=== PATIENT | female | born 1970 | race Caucasian/White ===

== ENCOUNTER 2022-04-04 11:51 | Emergency (ER) | payer MEDICAID, OTHER ==
[~2022-04-04] VITALS: Ht 160 cm; Wt 70.0 kg
[~2022-04-04 11:51] MED LIST: IBUP-2275 PO
[2022-04-04 13:00] LABS: BASOPHILS % (AUTO) 0.5 % (0.0-2.0); EOSINOPHILS % (AUTO) 4.3 % (1.0-6.0); LYMPHOCYTES # (AUTO) 1.6 K/uL (1.0-4.8); LYMPHOCYTES % (AUTO) 30.1 % (22.0-44.0); MEAN CORPUSCULAR HEMOGLOBIN 26.5 pg (26.0-34.0); MEAN CORPUSCULAR HGB CONC 31.6 G/dL (31.0-37.0); MEAN CORPUSCULAR VOLUME 84 fL (80-100); MONOCYTES # (AUTO) 0.4 K/uL (0.1-1.0); MONOCYTES % (AUTO) 6.8 % (2.0-9.0); NEUTROPHILS # (AUTO) 3.2 K/uL (1.8-7.7); NEUTROPHILS % (AUTO) 58.3 % (40.0-70.0); PLATELET COUNT (AUTO) 208 K/uL (150-450); RED BLOOD CELL COUNT(AUTO) 4.53 MIL/uL (4.00-5.20); RED CELL DISTRIBUTION WIDTH 15.1 % (11.5-14.5)
[2022-04-04 13:08] LABS: ANION GAP 7 mmol/L (8-16); CARBON DIOXIDE 30 mmol/L (22-29); CHLORIDE 105 mmol/L (98-107); CREATININE 0.63 mg/dL (0.60-1.30); GLOMERULAR FILTR. RATE CALC > 60 mL/min (>60); GLUCOSE,RANDOM 98 mg/dL (70-110); POTASSIUM 3.8 mmol/L (3.5-5.1); SODIUM SERUM 142 mmol/L (136-145); UREA NITROGEN, BLOOD 14 mg/dL (7-18)
[2022-04-04 13:13] LABS: ALANINE AMINOTRANSFERASE 57 U/L (12-78); ALKALINE PHOSPHATASE 73 U/L (46-116); ASPARTATE AMINOTRANSFERASE 45 U/L (15-37); BILIRUBIN,TOTAL 0.4 mg/dL (0.1-1.0); CREATINE KINASE, TOTAL ONLY 36 U/L (26-192); TOTAL PROTEIN, SERUM 8.6 g/dL (6.4-8.2)
[2022-04-04 13:21] LABS: B-TYPE NATRIURETIC PEPTIDE 33 pg/mL (0-100)
[2022-04-04 15:06] LABS: APPEARANCE,URINE CLEAR (CLEAR); BILIRUBIN,URINE NEGATIVE (NEGATIVE); GLUCOSE, URINE (UA) NEGATIVE (NEGATIVE); KETONES,URINE TRACE mg/dL (NEGATIVE); LEUKOCYTE ESTERASE ,URINE MODERATE (NEGATIVE); NITRATE,URINE NEGATIVE (NEGATIVE); OCCULT BLOOD,URINE NEGATIVE (NEGATIVE); PH,URINE 5.5 (5.0-8.0); PROTEIN,URINE NEGATIVE (NEGATIVE); UROBILINOGEN,URINE <=1.0 mg/dL (<=1.0)
[2022-04-04 15:22] VITALS: BP 103/58
[2022-04-04 16:39] LABS: SQUAMOUS EPITHELIAL CELL,UR Few /LPF (None Seen)
[2022-04-04 16:40] LABS: RBC,URINE None Seen /HPF (0-2)
[2022-04-04 16:41] LABS: BACTERIA,URINE None Seen /HPF (None Seen)
== END 2022-04-04 16:54 | disposition home or self-care (01) ==
LOC: EMS 12:03
DX: M72.2 Plantar fascial fibromatosis (principal); M19.079 Primary osteoarthritis, unspecified ankle and foot; E03.9 Hypothyroidism, unspecified; Z90.710 Acquired absence of both cervix and uterus
CPT/HCPCS: 71045; 80053; 81001; 82550; 83880; 84484; 85025; 99284; 36415-L1; 36415-TC

== ENCOUNTER 2023-01-19 08:42 | Emergency (ER) | payer OTHER ==
[~2023-01-19] VITALS: Ht 160 cm; Wt 75.0 kg
[~2023-01-19 08:42] MED LIST changes: -IBUP-2275 PO; +INDO-16 PO; +TRAM-559 PO
[2023-01-19 08:45] VITALS: TEMP 98.8
[2023-01-19] MEDS ORDERED: HYDROCODONE/ACETAMINOPHEN 5-325 MG TABLET PO ONE (09:30)
[2023-01-19] MEDS ORDERED: KETOROLAC TROMETHAMINE 60 MG/2 ML VIAL IM ONE (09:30)
[2023-01-19 11:07] VITALS: BP 133/89; PULSE 97; RESP 16
[2023-01-19] MEDS ORDERED: HYDR-4723 PO (11:29)
[2023-01-19] MEDS ORDERED: IBUP-1554 PO (11:29)
[2023-01-19] MEDS ORDERED: DICL100G60 TP (11:29)
== END 2023-01-19 11:49 | disposition home or self-care (01) ==
LOC: EMS 09:55
DX: M17.11 Unilateral primary osteoarthritis, right knee (principal); Z90.710 Acquired absence of both cervix and uterus; Z98.890 Other specified postprocedural states
CPT/HCPCS: 99283; 73562; 96372; J1885

== ENCOUNTER 2023-02-03 20:06 | Emergency (ER) | payer OTHER ==
[~2023-02-03] VITALS: Ht 162.6 cm; Wt 67.3 kg
[~2023-02-03 20:06] MED LIST changes: +DICL100G60 TP; +HYDR-4723 PO; +IBUP-1554 PO
[2023-02-03 23:39] VITALS: BP 129/74; PULSE 88; RESP 16; TEMP 97.3
[2023-02-04] MEDS ORDERED: KETOROLAC TROMETHAMINE 30 MG/ML VIAL IM ONE
[2023-02-04] MEDS ORDERED: IBUP-1554 PO (00:01)
== END 2023-02-04 00:35 | disposition home or self-care (01) ==
LOC: EMS 20:11
DX: M25.522 Pain in left elbow (principal); Z90.710 Acquired absence of both cervix and uterus; Z98.890 Other specified postprocedural states; Z88.6 Allergy status to analgesic agent
CPT/HCPCS: 99283